=== PATIENT | female | born 1990 | race Hispanic/Latino ===

== ENCOUNTER 2020-01-29 19:20 | Emergency (ER) | payer SELFPAY ==
[2020-01-29] MEDS ORDERED: Ketorolac Tromethamine 60 MG/2 ML VIAL ONE (19:55)
--- NOTE | 2020-01-30 08:04 | RAD ---
RIGHT HIP 2 VIEWS: Date: 01/29/2020 No fracture, dislocation, or acute bony change seen. The joint space appears normal in width and the articular surfaces are smooth. IMPRESSION: No acute findings. POS: HOME
--- NOTE | 2020-01-30 08:05 | RAD ---
RIGHT RIBS: Date: 01/29/2020 Three views show no evidence of fracture. Subtle fractures in the lower ribs might be missed on this study. The right lung is clear with no sign of infiltrate, effusion, or pneumothorax. IMPRESSION: No acute bony findings. POS: HOME
== END 2020-01-29 20:05 | disposition home or self-care (01) ==
LOC: BURERS 19:20
DX: S20.211A Contusion of right front wall of thorax, initial encounter (principal); S70.01XA Contusion of right hip, initial encounter; S80.212A Abrasion, left knee, initial encounter; S80.211A Abrasion, right knee, initial encounter; V67.6XXA Passenger in heavy transport vehicle injured in collision with fixed or stationary object in traffic accident, initial encounter
CPT/HCPCS: 96372; J1885